=== PATIENT | female | born 2000 | race African-American/Black ===

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

== ENCOUNTER 2022-04-27 12:52 | Outpatient (REF) | payer OTHER, SELFPAY ==
[2022-04-27 13:57] LABS: MANUAL DIFF FLAG NO
[2022-04-27 14:05] LABS: Basophils Percent Auto 0.3 % (0-2); Eosinophils Percent Auto 0.2 % (0-4); Hematocrit 35.6 % (37.0-47.0); Imm Gran Abs Auto 0.02 X10*3/uL (0.00-0.03); Imm Gran Pct Auto 0.2 % (0.0-0.4); Lymphocytes Absolute Auto 1.7 X10*3/uL (1.2-4.9); Lymphocytes Percent Auto 18.9 % (20-40); Mean Corpuscular HGB Conc 33.7 g/dl (31.0-35.0); Mean Corpuscular Hemoglobin 30.6 pg (27.0-33.0); Mean Corpuscular Volume 90.8 fL (80.0-98.0); Mean Platelet Volume 10.9 fL (9.4-12.3); Monocytes Absolute Auto 0.5 X10*3/uL (0.1-1.2); Monocytes Percent Auto 5.1 % (2-11); Neutrophils Absolute Auto 6.9 x10*3/uL (2.0-8.3); Neutrophils Percent Auto 75.3 % (45-73); Platelet Count 350 X10*3/uL (160-400); Red Blood Count 3.92 X10*6/uL (4.20-5.50); Red Cell Distribution Width 12.4 % (11.0-16.0); White Blood Count 9.1 X10*3/uL (4.8-10.8)
[2022-04-27 14:21] LABS: Estimated Average Glucose 103 mg/dL; Hemoglobin A1c % 5.2 %
[2022-04-27 14:34] LABS: Alanine Aminotransferase 11 U/L (0-31); Albumin Level 4.2 g/dL (3.5-5.0); Alkaline Phosphatase 41 U/L (39-117); Anion Gap 14 (12-20); Aspartate Amino Transferase 17 U/L (5-31); Bilirubin Total 0.4 mg/dL (0.0-1.0); Blood Urea Nitrogen 13 mg/dL (9-16); Calcium 9.4 mg/dL (8.4-10.2); Carbon Dioxide 25 mmol/L (22-29); Chloride 103 mmol/L (96-108); Cholesterol 141 mg/dL; Estimated Glomerular Filt Rate > 60; Glucose Random 83 mg/dL (60-115); HDL Cholesterol 58 mg/dL; LDL Cholesterol Calculated 74 mg/dl; Potassium 4.2 mmol/L (3.3-5.1); Sodium 138 mmol/L (135-145); Total Protein 7.3 g/dL (6.5-8.0); Triglycerides 47 mg/dL
[2022-04-27 14:55] LABS: Thyroid Stimulating Hormone 0.53 uIU/mL (0.32-4.0)
[2022-04-27 16:22] LABS: CT PCR NOT DETECTED (Not Detect.); NG PCR NOT DETECTED (Not Detect.)
[2022-04-30 08:11] LABS: HIV AB/AG Nonreactive (Nonreactive); HIV Num 1 0.05 S/CO (0.00-0.99); ~HepC Num1 0.11 S/CO (0.00-0.79); ~Hepatitis C Antibody Nonreactive (Nonreactive)
[2022-05-01 05:56] LABS: TS Negative Control Passed; TS Panel A 0; TS Panel B 1; TS Positive Control Passed; TSpotTB Negative (Negative)
== END 2022-04-27 12:53 | disposition home or self-care (01) ==
LOC: HO.HMGCLDS 12:52
PROVIDERS: PCP Physician Assistant; Visit Provider Physician Assistant
DX: Z01.84 Encounter for antibody response examination (principal); Z11.59 Encounter for screening for other viral diseases; Z11.3 Encounter for screening for infections with a predominantly sexual mode of transmission; Z11.4 Encounter for screening for human immunodeficiency virus [HIV]; Z11.1 Encounter for screening for respiratory tuberculosis; Z13.0 Encounter for screening for diseases of the blood and blood-forming organs and certain disorders involving the immune mechanism; Z13.220 Encounter for screening for lipoid disorders; Z13.29 Encounter for screening for other suspected endocrine disorder; E88.81 Metabolic syndrome and other insulin resistance
CPT/HCPCS: 80053; 80061; 83036; 84443; 85025; 86481; 86803; 87389; 87491; 87591

== ENCOUNTER 2024-12-31 14:35 | Outpatient (REF) | payer OTHER, SELFPAY ==
--- OUTSIDE RECORDS SUMMARY | 2024-12-29 14:30 | XMS_ITS | Encounter Summary ---
Author Organization [facility] Address [address] [place] [address] Care Team Providers Care Medical Front Desk Coordinator Name Role Phone Cindy Ford MD Primary Care Provider [phone] Reason for Referral * Imaging (Routine) - Authorized Specialty Diagnoses / Procedures Referred By Ayan peace Referred To Contact Radiology Diagnoses Breast pain, left Procedures US Breast Limited Left Piper Ferraro PA [address] [place] [id number] Phone: tel: fax: External Performed Referral ID Status Reason Start Date Expiration Date V isits Requested Visits Authorized [id number] Authorized 12/29/2024 12/29/2025 1 1 Reason for Visit * Reason Comments Annual Exam Encounter Details Date Type Department Care Team (Late st Contact Info) Description 12/29/2024 2:30 PM EDT Office Visit Adult Medicine [address] [address] Piper Ferraro PA [address] [place] [id number] Routine physical examination (Primary Dx); Breast pain, left Social History Tobacco Use Types Packs/Day Years Used Date Smoking Tobacco: Never Smokeless Tobacco: Never Tobacco Cessation:Counseling Given: Not Answered Alcohol Use Standard Drinks/Week Comments Yes 0 (1 standard drink = 0.6 oz pur e alcohol) social Housing Instability Answer Date Recorde d Are you worried that in the next 2 months you may not have stable housing? No 12/29/2024 Food Access & Nutrition Answer Date Rec orded Do you have access to a vari ety of food including fruits and vegetables? Yes 12/29/2024 Access to Healthcare Answer Date Record ed Within the last 3 months, ho w many times did you visit the emergency department for your medical care? 0 12/29/2024 Health Literacy Answer Date Recorded How often do you need to hav e someone help you when you read instructions, pamphlets, or other written material from your doctor or pharmacy? Never 12/29/2024 Caregiver: How often do you need to have someone help you when you read instructions, pamphlets, or other written material from your doctor or pharmacy? Not on file 12/29/2024 Financial Risk Answer Date Recorded How hard is it for you to pa y for the very basics like food, housing, medical care, and air conditioning / heating? Not very hard 12/29/2024 Transportation Answer Date Recorded Has the lack of transportati on kept you from meetings, work, or from getting things needed for daily living? No Has the lack of transportati on kept you from medical appointments or from getting medications? No 12/29/2024 Social Isolation Answer Date Recorded How often do you feel lonely or isolated from th ose around you? Never 12/29/2024 Food Risk Answer Date Recorded Within the past 12 months we worried whether our food would run out before we got money to buy more. Never true 12/29/2024 Within the past 12 months th e food we bought just didn't last and we didn't have money to get more. Never true 12/29/2024 Dependent Care Answer Date Recorded Do you need help finding or paying for care for your loved ones. For example, early childhood education worker or elderly care for an older adult? No 12/29/2024 Education Answer Date Recorded Do you think completing more education or training, like finishing a GED, going to college, or learning a trade, would be helpful for you? No 12/29/2024 Employment and Income Answer Date Recor ded During the last four weeks, have you been actively looking for work? No 12/29/2024 Living Situation Answer Date Recorded What is your living situation? 0 12/29/2024 Comments No Sex and Gender Information Value Date Recorded Sex Assigned at Not on file Legal Sex Female 12:50 PM EST Gender Identity Not on file Sexual Orientation Not on file documented as of this encounter Last Filed Vital Signs Vital Sign Reading Time Taken Comments Blood Pressure 112/72 12/29/2024 2:08 PM EDT Pulse 70 12/29/2024 2:08 PM EDT Temperature 36.2 C (97.2 F) 12/29/2024 2:08 PM EDT Respiratory Rate 14 12/29/2024 2:08 PM EDT Oxygen Saturation - - Inhaled Oxygen Concentration - - Weight 90.4 kg (199 lb 3.2 oz) 12/29/2024 2:08 P M EDT Height 167.6 cm (5' 6 ) 12/29/2024 2:08 PM EDT Body Mass Index 32.15 12/29/2024 2:08 PM EDT documented in this encounter Progress Notes * MARYANN Antunez - 12/29/2024 2:30 PM EDTAddended by: PIPER FERRARO on: 12/29/2024 04:01 PM Modules accepted: Level of Service * Greta Del Real MA - 12/29/2024 2:30 PM EDT Last eye exam over 2 yrs Dental q 6 months Covid x 2 Tdap ? 2023 [facility] * MARYANN Antunez - 12/29/2024 2:30 PM EDT CHIEF COMPLAINT: Annual Exam IDENTIFIER: Patti Rosario is a 24 y.o. old female. HPI: Patient is here for routine physical examination Works as a respiratory therapist Routine dental exams, no vision exam but will schedule Follows with Supervisor Fertilizer here with appt next month, does note some increased vaginal discharge but nothing abnormal. Was treated for bacterial vaginosis and candidiasis in September and completed treatment. Using barrier protection when sexually active. Concerns: Occ getting pain on left side of chest out of nowhere x 2 months. Not associated with movements. Further discussion locates pain to the left lateral breast. Does not have any known history of breast cancer however, states her maternal aunt has had multiple masses removed from her breasts although, she has been told they are noncancerous. ROS: GENERAL: No malaise, significant weight loss or fever HEENT: No changes in hearing or vision, nose bleeds or other nasal problems NECK: No lumps, goiter, pain or significant neck swelling RESPIRATORY: No cough, wheezing or shortness of breath CARDIOVASCULAR: No chest pain, leg swelling or palpitations BREAST: Reports off-and-on left breast pain GI: No abdominal discomfort, blood in stools or black stools : No dysuria, frequency or incontinence SHOVE UP: Reports some increased discharge MUSCULOSKELETAL: No joint pain or swelling, back pain, or muscle pain. SKIN: No lesions, rash or itching PSYCH: No sleep disturbance, mood disorder or recent psychosocial stressors. HEMATOLOGY/LYMPHOLOGY No prolonged bleeding, easy bruisability or swollen nodes ENDOCRINE: No cold or heat intolerance, polyuria, polydipsia or goiter. NEURO: No persistent headache, syncope, seizures, weakness or numbness PAST MEDICAL HISTORY: Patient Active Problem List Diagnosis Date Noted COVID-19 virus infection 01/06/2020 Insulin resistance 09/30/2015 Obesity 10/26/2014 Past Surgical History: Procedure Laterality Date OTHER SURGICAL HISTORY PROCEDURE: DENIES PREVIOUS SURGERY SOCIAL HISTORY: Social History Tobacco Use Smoking status: Never Smokeless tobacco: Never Substance Use Topics Alcohol use: Yes Comment: social FAMILY HISTORY: Family History Problem Relation Name Age of Onset Asthma Mother BIJAN No Known Problems Father Asthma Sister Diabetes Maternal Grandmother thyroid, obesity, on O2 COPD Maternal Grandmother Sleep apnea Maternal Grandmother Diabetes Maternal Grandfather No Known Problems Paternal Grandmother No Known Problems Paternal Grandfather Breast cancer Neg Hx Ovarian cancer Neg Hx Uterine cancer Neg Hx Family Status Relation Name Status Mother Alive 08/26/1978 Jessica Father Alive 05/27/1971 Nickolas Sister Alive MGM Alive MGF PGM Alive PGF Neg Hx (Not Specified) No partnership data on file MEDICATIONS DISCONTINUED/REORDERED: There are no discontinued medications. ACTIVE MEDICATIONS: Outpatient Medications Marked as Taking for the 12/29/24 encounter (Office Visit) with MARYANN Antunez Medication Sig Dispense Refill norethindrone-ethinyl estradiol (Nortrel 0.5/35, 28,) 0.5-35 mg-mcg per tablet Take 1 tablet by mouth 1 (one) time each day. 84 tablet 0 ALLERGIES: Allergies Allergen Reactions Amoxicillin-Pot Clavulanate PHYSICAL EXAM: Visit Vitals BP 112/72 Pulse 70 Temp 36.2 ??C (97.2 ??F) (Temporal) Resp 14 Ht 1.676 m (66 ) Wt 90.4 kg (199 lb 3.2 oz) LMP 11/24/2024 BMI 32.15 kg/m?? OB Status Having periods Smoking Status Never BSA 2 m?? APPEARANCE: Alert and in no acute distress EYES: PERRL, conjunctiva and sclera normal. EARS: External ears normal. Canals clear. TMs normal. NOSE/SINUS: Nares normal. Septum midline. Mucosa normal. No drainage or sinus tenderness. MOUTH/THROAT: no erythema or exudates NECK: Neck supple, no adenopathy, thyroid symmetric and of normal size HEART: RRR with normal S1 and S2, no murmurs, no gallops, no JVD appreciated BREAST: (Left) no palpable masses noted, no pain to palpation including over the area of concern at2:00, no skin changes noted, no nipple discharge is noted. (Right) no palpable masses, pain to palpation, skin changes, nipple discharge noted. NORIS [place] LUNG: clear to auscultation LYMPH NODES: grossly normal ABDOMEN: Bowel sounds normoactive, no bruits, soft, non-tender, without organomegaly or palpable masses BACK: No pain to palpation with good flexion and extension EXTREMITIES: Extremities warm and well perfused without clubbing, cyanosis, or edema NEURO: Awake, alert and oriented x 3 with symmetrical reflexes SKIN: Skin color, texture, turgor normal. No rashes or lesions. LABS/IMAGING: ordered IMPRESSION: 1. Routine physical examination 2. Breast pain, left PLAN: 24-year-old female for routine physical exam. Patient reporting 2 months of off-and-on left breastpain. Not reproducible on exam, no adventitious findings noted. Patient ordered for ultrasound of the breast and would like to complete this at [facility] due to insurance. Routine labs ordered today (also at [facility]) with further orders pending results. Patient has upcoming appointment in [employer] which she is encouraged to keep. Return for yearly physical exam. Advise schedule yearly physical exam. 1. Health maintenance: The patient presented for an evaluation of general health. As part of this visit, we reviewed the following issues, which are considered an essential part of preventative health in this age group: - Cervical cancer testing every 1-3 years - pt has appt - Blood pressure annual screening performed - Cholesterol screening every five years - ordered - Nutritional and exercise counseling - patient advised to pursue at least 30 minutes of exercise most days of the week - Screening for depression - using the PHQ-9 - Prevention of and/or testing for infectious diseases, which may include Chlamydia, Gonorrhea, Syphilis, HIV, Hepatitis C and Tuberculosis - advice about STD prevention provided - Recommendations about immunizations - patient is up-to-date on immunizations - Recommendation of an eye exam for glaucoma once in this age range - patient will self-refer - Screening for substance abuse (including tobacco, alcohol, and recreational drugs) - see Substance & Sexuality section of medical record - Genetic cancer risk screening - NO INDICATION: Hereditary Cancer Syndrome Risk Assessment completed and evaluated. No indication found for genetic testing at this time. - In addition to reviewing these issues, I have reviewed the following sections of the chart: Past Medical History, Social History, and Social History Medication and lab orders: Orders Placed This Encounter Procedures US Breast Limited Left CBC and differential Comprehensive metabolic panel Hemoglobin A1c Lipid panel with reflex to direct LDL Thyroid stimulating hormone with reflex to free t4 and free t3 Other orders: US BREAST LIMITED LEFT * Greta Del Real MA - 12/29/2024 2:30 PM EDT This documentation confirms that Greta Del Real MA was the ingot buggy operator for Patti Rosario on their officevisit 12/29/2024. documented in this encounter Plan of Treatment Upcoming Encounters Date Type Department Care Team (Late st Contact Info) Description 01/26/2025 1:30 PM EDT Office Visit Obstetrics and Gynecology - [address] [place] [address] Rubia Rhodes, [facility] [address] [place] [address] Scheduled Orders Name Type Priority Associated Diagnoses Orde r Schedule CBC and differential Lab Routine Routine physical examination 1 Occurrences starting 12/29/2024 until 12/29/2025 Comprehensive metabolic panel Lab Routine Routine physical examination 1 Occurrences starting 12/29/2024 until 12/29/2025 Hemoglobin A1c Lab Routine Routine physical examination 1 Occurrences starting 12/29/2024 until 12/29/2025 Lipid panel with reflex to direct LDL Lab Routine Routine physical examination 1 Occurrences starting 12/29/2024 until 12/29/2025 Thyroid stimulating hormone with reflex to free t4 and free t3 Lab Routine Routine physical examination 1 Occurrences starting 12/29/2024 until 12/29/2025 US Breast Limited Left Imaging Routine Breast pain, left Expected: 12/29/2024, Expires: 12/29/2025 documented as of this encounter Visit Diagnoses Diagnosis Routine physical examination- Primary Routine general medical examination at a health care facility Breast pain, left documented in this encounter Additional Health Concerns Assessment Noted Time PHQ-9 Depression Total Score: 1 12/30/19 2:50 PM EDT documented as of this encounter Care Teams Medical Front Desk Coordinator Relationship Specialty Start Date End Date Cindy Ford MD [address] [place] [address] PCP - General Internal Medicine 09/08/24 documented as of this encounter
[2024-12-31 17:30] LABS: MANUAL DIFF FLAG NO
[2024-12-31 17:44] LABS: Basophils Percent Auto 0.5 % (0-2); Eosinophils Percent Auto 0.4 % (0-4); Hematocrit 34.6 % (37.0-47.0); Hemoglobin 11.9 g/dl (12.0-16.0); Imm Gran Abs Auto 0.04 X10*3/uL (0.00-0.03); Imm Gran Pct Auto 0.5 % (0.0-0.4); Lymphocytes Absolute Auto 2.5 X10*3/uL (1.2-4.9); Lymphocytes Percent Auto 29.3 % (20-40); Mean Corpuscular HGB Conc 34.4 g/dl (31.0-35.0); Mean Corpuscular Hemoglobin 31.7 pg (27.0-33.0); Mean Corpuscular Volume 92.3 fL (80.0-98.0); Mean Platelet Volume 10.7 fL (9.4-12.3); Monocytes Absolute Auto 0.8 X10*3/uL (0.1-1.2); Monocytes Percent Auto 9.7 % (2-11); Neutrophils Percent Auto 59.6 % (45-73); Platelet Count 361 X10*3/uL (160-400); Red Blood Count 3.75 X10*6/uL (4.20-5.50); Red Cell Distribution Width 12.6 % (11.0-16.0); White Blood Count 8.4 X10*3/uL (4.8-10.8)
[2024-12-31 17:48] LABS: Estimated Average Glucose 103 mg/dL; Hemoglobin A1c % 5.2 % (<6.0)
[2024-12-31 17:59] LABS: Alanine Aminotransferase 19 U/L (0-31); Albumin Level 4.1 g/dL (3.5-5.0); Alkaline Phosphatase 32 U/L (39-117); Anion Gap 11 (12-20); Aspartate Amino Transferase 30 U/L (5-31); Bilirubin Total 0.3 mg/dL (0.0-1.0); Blood Urea Nitrogen 9 mg/dL (9-16); Calcium 9.7 mg/dL (8.4-10.2); Carbon Dioxide 26 mmol/L (22-29); Chloride 104 mmol/L (96-108); Cholesterol 144 mg/dL (<200); Estimated Glomerular Filt Rate > 60; Glucose Random 83 mg/dL (60-115); HDL Cholesterol 57 mg/dL (>40); LDL Cholesterol Calculated 76 mg/dL (<100); Potassium 4.4 mmol/L (3.3-5.1); Sodium 137 mmol/L (135-145); Triglycerides 57 mg/dL (<150)
[2024-12-31 18:16] LABS: TSH reflex Free T4 0.83 uIU/mL (0.32-4.0)
[2025-01-01 11:49] LABS: Triiodothyronine T3 Free 3.6 pg/mL (2.3-4.2)
== END 2024-12-31 14:36 | disposition home or self-care (01) ==
LOC: HO.HMGCLNP 14:35
PROVIDERS: PCP Physician Assistant; Visit Provider Physician Assistant
DX: Z00.00 Encounter for general adult medical examination without abnormal findings (principal); Z13.6 Encounter for screening for cardiovascular disorders; Z13.1 Encounter for screening for diabetes mellitus
CPT/HCPCS: 80053; 80061; 83036; 84443; 84481; 85025

== ENCOUNTER 2025-06-03 12:19 | Outpatient (REF) | payer OTHER, SELFPAY ==
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
--- OUTSIDE RECORDS SUMMARY | 2025-06-03 18:20 | XMS_ITS | Clinical Summary ---
Author Organization Formerly [facility] Address [address] [place] [address] Care Team Providers Care Supervisor Braiding Name Role Phone Unknown Primary Care Provider [phone] Allergies No known active allergies Social History Tobacco Use Types Packs/Day Years Used Date Smoking Tobacco: Never Assessed Comments Unknown Sex and Gender Information Value Date Recorded Sex Assigned at Female 07/01/2023 10:23 AM EST Legal Sex Female 8:54 PM EDT Gender Identity Female 07/01/2023 10:23 AM EST Sexual Orientation Heterosexual (straight) 07/01 10:23 AM EST Last Filed Vital Signs Vital Sign Reading Time Taken Comments Blood Pressure 122/63 07/01/2023 11:04 AM EST Pulse 62 07/01/2023 11:04 AM EST Temperature 36.2 C (97.2 F) 07/01/2023 10:21 AM EST Respiratory Rate 16 07/01/2023 11:04 AM EST Oxygen Saturation 100% 07/01/2023 11:04 AM EST Inhaled Oxygen Concentration - - Weight - - Height - - Body Mass Index - - Plan of Treatment Health Maintenance Due Date Last Done Comments Hepatitis C Virus Screening 2002 HIV Screening 2015 HPV Vaccines (1 - 3-dose series) 2017 DTaP/Tdap/Td Vaccines (1 - Tdap) 2021 Hepatitis B Vaccines (1 of 3 - 19+ 3-dose series) 2021 Pap Smear (Ages 21-65) 2023 Influenza Vaccine 02/12/2025 04/16/2022, , 07/18/2010, Additional history exists COVID-19 Vaccine ( season) 2025 03/03/2021, 02/03/2021 Influenza Vaccine Discontinued 04/16/2022, , 07/18/2010, Additional history exists Pneumococcal Vaccine: Pediatric (0-5 Years) and At-Risk Patients (6 to 49 Years) Aged Out No longer eligible based on patient's age to complete this topic Insurance [facility] [employer] Member Subscriber Plan / Payer (Ef fective 2023-Present) Name:Patti Rosario Relation to Subscriber:Self Name:Patti Rosario Subscriber ID:Not on file Payer ID:Not on file Group ID:Not on file Type:Not on file Address: [address] [facility] TPL (AUTO/LIABILITY) Care Teams Supervisor Braiding Relationship Specialty Start Date End Date Unknown Unknow Provider Address PCP - General 07/01/23
[2025-06-04 08:05] LABS: HIV Num 1 0.06 S/CO (0.00-0.99); ~HepC Num1 0.12 S/CO (0.00-0.79); ~Hepatitis C Antibody Nonreactive (Nonreactive)
[2025-06-08 20:23] LABS: Treponema pallidum Ab FTA ABS Nonreactive (Nonreactive)
== END 2025-06-03 12:20 | disposition home or self-care (01) ==
LOC: HO.HMGCLDS 12:19
PROVIDERS: Visit Provider Advanced Practice Midwife
DX: Z01.84 Encounter for antibody response examination (principal); Z20.2 Contact with and (suspected) exposure to infections with a predominantly sexual mode of transmission; Z11.59 Encounter for screening for other viral diseases; Z11.4 Encounter for screening for human immunodeficiency virus [HIV]
CPT/HCPCS: 36415; 86780; 86803; 87389